=== PATIENT | female | born 1995 | race Caucasian/White ===

== ENCOUNTER 2017-03-15 05:07 | Inpatient (IN) | payer OTHER ==
[2017-03-15 05:46] VITALS: BMI 28.1
[2017-03-15] MEDS ORDERED: OXYTOCIN IN NS 334 ML IV PRN ×3 (06:20→06:40)
[2017-03-15] MEDS ORDERED: LACTATED RINGERS 1,000 ML IV PRN (06:20)
[2017-03-15] MEDS ORDERED: MINERAL OIL 25 ML BOT ONE (07:27)
[2017-03-15] MEDS ORDERED: OXYTOCIN IN NS 500 ML IV ONE (07:27)
[2017-03-15] MEDS ORDERED: LIDOCAINE Viscous 2% 15 ML UDCUP ONE (07:27)
[2017-03-15] MEDS ORDERED: LIDOCAINE 1% (PRES FREE) 30 ML VIAL ONE (07:27)
[2017-03-15] MEDS ORDERED: OXYTOCIN 10 UNITS/ML VIAL ONE (07:27)
[2017-03-15] MEDS ORDERED: MINERAL OIL 25 ML BOT PO ONE (14:20)
[2017-03-15] MEDS ORDERED: LIDOCAINE 1% (PRES FREE) 30 ML VIAL SUB-Q ONE (14:20)
--- NOTE | 2017-03-15 14:31 | PCMAN ---
OB Admission Note - History : 2 Term: 0 : 0 Abortions (S&E): 1 Livin Gestational Age (weeks): 37 Days (#/7): 3 Admit Cervical Dilation:: 3.5 Admit Cervical Effacement (%):: 80 Admit Station:: -2 Admit Presentaton:: vtx Membrane Status: Ruptured Rupture (Date): 03/15/17 Labor Onset (Date): 03/14/17 Labor Onset (Time): 19:45 Contractions: Yes Contraction Frequency:: 5-5.5 Heart Rate:: 120 Status:: category 1 Summary of Course:: Uncomplicated - Labs Blood Type: AB (+) positive
--- NOTE | 2017-03-15 14:33 | PCMDEL ---
Delivery Note - Delivery Delivery (Date): 03/15/17 Delivery (Time): 14:14 Gender: Male Presentation: Cephalic Position: OA Umbilical Cord: 3 Vessel Delayed Cord Clamping:: < 1-2 min Placenta:: spontaneous and complete EBL:: 300ml Perineum:: midline episiotomy Suture:: 2-0 chromic Anesthesia/Meds:: local
[2017-03-15] MEDS ORDERED: OXYTOCIN IN NS 167 ML IV PRN (14:51)
[2017-03-15] MEDS ORDERED: LANOLIN 50 APPLIC/7G TUBE TP PRN (14:51)
[2017-03-15] MEDS ORDERED: MAGNESIUM HYDROXIDE 30 ML UDCUP PO PRN (14:51)
[2017-03-15] MEDS ORDERED: CALCIUM CARBONATE 500 MG TAB.CHEW PO PRN (14:51)
[2017-03-15] MEDS ORDERED: MEASLES,MUMPS&RUBELLA VACCINE 0.5 ML VIAL SUB-Q V ONE (14:51)
[2017-03-15] MEDS ORDERED: BENZOCAINE/MENTHOL 60 APPLIC/BOT TP PRN (14:51)
[2017-03-15] MEDS ORDERED: DIPHTH,PERTUSS(ACELL),TET VAC 0.5 ML VIAL IM V ONE (14:51)
[2017-03-15] MEDS ORDERED: HYDROCODONE/ACETAMINOPHEN 5/325MG TABLET PO PRN (14:51)
[2017-03-15] MEDS: IBUPROFEN 800 MG TABLET PO PRN (15:22)
--- NOTE | 2017-03-16 07:02 | PDOC44 ---
- Subjective Day: 1 Reports Pain Tolerable, Reports , Reports Lochia Light, Reports Tolerating Regular Diet - Objective Temp Pulse Resp BP Pulse Ox 98.3 F 86 18 131/75 03/16/17 02:15 03/16/17 02:15 03/16/17 02:15 03/16/17 02:15 Current Medications Generic Name Dose Route Start Last Admin Trade Name Freq PRN Reason Stop Dose Admin Acetaminophen/Hydrocodone Bitart 1 - 2 tab 03/15/17 14:51 [place] 5/325 PO Q4H PRN Pain (Moderate) Benzocaine/Menthol 1 applic 03/15/17 14:51 Dermoplast TP PRN PRN Patient Comfort Calcium Carbonate/Glycine 500 - 1,000 mg 03/15/17 14:51 Tums PO BID PRN Indigestion Docusate Sodium 100 mg 03/16/17 09:00 Colace PO DAILY JONG Emollient Ointment 1 applic 03/15/17 14:51 [id number] TP PRN PRN sore nipples Ibuprofen 800 mg 03/15/17 14:51 03/15/17 15:22 Motrin PO 800 mg Q6H PRN Administration Pain (Mild) Magnesium Hydroxide 30 ml 03/15/17 14:51 Milk Of Magnesia PO BEDTIME PRN Constipation - Physical Exam General: Afebrile Psych/Mental Status: Mood/Affect Appropriate Breast: Soft Fundus: Firm Abdomen: Normal Bowel Sounds Genitourinary: Normal Female Genitalia Disposition: Stable, Anticipate DC Home Tomorrow
[2017-03-16 07:10] LABS: HEMATOCRIT 25.4 % (37.0-47.0); HEMOGLOBIN 8.6 gm/l (12.0-16.0)
[2017-03-16] MEDS ORDERED: DOCUSATE SODIUM 100 MG CAPSULE PO SCH (09:00)
[2017-03-16] MEDS: IBUPROFEN 800 MG TABLET PO PRN (19:18)
[2017-03-16 20:48] VITALS: BP 116/55
== END 2017-03-16 23:59 | disposition still patient (30) | DRG 775 ==
LOC: FBCOUT 05:07 → FBC 05:07 → FBCOUT 06:20 → FBC 06:20
PROVIDERS: ADMIT Obstetrics & Gynecology; ATTEND Obstetrics & Gynecology
PROC: 10E0XZZ Delivery of Products of Conception, External Approach (ICD-10-PCS; principal; 2017-03-15)
PROC: 0W8NXZZ Division of Female Perineum, External Approach (ICD-10-PCS; 2017-03-15)
DX: O42.913 Preterm premature rupture of membranes, unspecified as to length of time between rupture and onset of labor, third trimester (principal); Z3A.37 37 weeks gestation of pregnancy; Z37.0 Single live birth